=== PATIENT | male | born 1930 | race Caucasian/White ===

== ENCOUNTER → 2016-11-06 | Outpatient (CLI) | payer MEDICARE, BC ==
[~2016-11-06] MED LIST: ADALAT CC PO; ADALATCC PO; AMLODIPINE BESY10 MG PO; AMOXICILLIN PO; ASPIRIN PO; ASPIRIN81 M1 PO; AUGMENTIN PO; BENZONATATE PO; COLESTID PO; COUMADIN PO; COUMADIN2.5 MG PO; CRESTOR PO; CRESTOR40 MG PO; FERRO-TIME325 MG PO; FERROUS SULFATE PO; GLUCOSAMINE1000 MG PO; LANOXIN PO; LASIX PO; LEVAQUIN750 MG PO; LISINOPRIL PO; LISINOPRIL20 MG PO; LOPRESSOR PO; MAGNESIUM400 MG PO; METOPROLOL TAR100 MG PO; MULTI-VITAMIN1 EAC1 PO; NILSTAT PO; OMEGA 3 FISH OI1 CAP PO; OSTEO BI-FLEX1 EAC1 PO; PROTONIX PO; SYNTHROID PO; VITAMIN D31000 UNI1 PO; ZETIA PO
== END | disposition home or self-care (01) ==
LOC: CRAD 09:29
DX: R13.10 Dysphagia, unspecified (principal)
CPT/HCPCS: 74230; 92611; G8996-GN; G8997-GN; G8998-GN